=== PATIENT | female | born 1985 | race Caucasian/White ===

== ENCOUNTER 2018-05-08 21:41 | Emergency (ER) | payer OTHER, SELFPAY ==
--- NOTE | 2018-05-08 21:43 | DI.RAD.S_ITS ---
PROCEDURE: XR CHEST 1V INDICATIONS: Chest pain TECHNIQUE: One view of the chest was acquired. COMPARISON: None. FINDINGS: Surgical changes and devices: None. Lungs and pleura: Lungs are clear. No pleural effusions or pneumothorax. Mediastinum: Mediastinal contours appear normal. Heart size is normal. Bones and chest wall: No suspicious bony lesions. Overlying soft tissues appear unremarkable. IMPRESSION: No acute cardiopulmonary disease. Dictated by: Jaymie Stacy M.D. on 05/09/2018 at 8:30 Approved by: Jaymie Stacy M.D. on 05/09/2018 at 8:30
[2018-05-08 21:45] VITALS: BP 147/82; PULSE 104; RESP 18; TEMP 36.8; O2SAT 100; BMI 11.9
--- NOTE | 2018-05-08 21:51 | ED.CHESTPAIN ---
HPI - Chest Pain General Chief Complaint: Chest Pain Stated Complaint: Pain in chest and back Time Seen by Provider: 05/08/18 21:43 Source: patient Mode of arrival: ambulatory Limitations: no limitations History of Present Illness HPI narrative: Patient is a 32-year-old otherwise healthy female here for evaluation of right-sided chest pain and back pain. She states it has been going off and on for the past several months. Has been more frequent over the past couple weeks. She describes it as a sharp and achy pain. Does get a little worse when she takes a big deep breath not worse with palpation or movement. Has not tried anything for it. Also has had other respiratory symptoms. Had a son who was recently diagnosed with the flu. She stated that he was going to be several weeks before she get in to see her primary doctor show she came into the emergency department this evening. Review of Systems Constitutional Denies fever(s) Cardiovascular Reports chest pain, Denies edema and Denies dyspnea Respiratory Denies cough and Denies dyspnea Gastrointestinal Gastrointestinal: Denies abdominal pain, Denies nausea and Denies vomiting Integumentary/Breasts Denies rash Neurologic Denies behavioral changes Psychiatric Denies behavioral changes Hematologic/Lymphatic Denies easy bleeding and Denies easy bruising PFSH Medical History Healthy adult (Acute) Surgical History No pertinent past surgical history (Acute) Social History lives independently: Yes Social History lives independently: Yes Exam Initial Vital Signs Initial Vital Signs: Vital Signs Temperature 98.2 F 05/08/18 21:45 Pulse Rate 104 H 05/08/18 21:45 Respiratory Rate 18 05/08/18 21:45 Blood Pressure 147/82 H 05/08/18 21:45 Pulse Oximetry 100 05/08/18 21:45 Const General: cooperative, comfortable, well developed, well groomed and No acute distress Orientation: alert, awake and oriented x3 Resp Effort & Inspection: normal respiratory effort Auscultation: clear to auscultation bilaterally Cardio Rate: regular rate Rhythm: regular rhythm GI Inspection: non-distended Palpation: soft and No firm Skin Lesions: no lesions Rashes: no rashes Neuro General: alert, awake and oriented x3 Cognition: normal cognition Speech: speech normal Extrem General: normal to inspection and capillary refill normal Scores PERC Score Age greater than or equal to 50 years: No Heart rate greater than or equal to 100 bpm: No Room Air O2 Sat less than 95%: No Unilateral leg swelling: No Recent trauma or surgery: No Hemoptysis: No Prior PE or DVT: No Hormone Use: No Total PERC Score: 0 Course Orders Ordered: ED Orders 05/08/18 21:43 XR chest 1V Stat EKG-12 Lead Stat 05/08/18 22:22 Influenza A and B by PCR Rapid Stat Vital Signs - 8 hr 05/08/18 21:45 05/08/18 22:33 Temperature 98.2 F Pulse Rate 104 H 93 H Respiratory Rate 18 17 Blood Pressure 147/82 H Blood Pressure [Left Arm] 115/76 Pulse Oximetry 100 100 MDM - Chest Pain Lab Data Attestation: I reviewed the patient's lab results. Lab Results 05/08/18 Range/Units 22:22 Influenza A & B (PCR) Negative (Negative) Imaging Data Chest x-ray: Attestation: I personally reviewed and interpreted this imaging study as follows: My impression: No pneumothorax Normal size heart No focal consolidation ECG Data Attestation: I personally reviewed and interpreted this ECG as follows: Prior ECG tracings: not available for review Interpretation: Sinus rhythm Ventricular rate of 96 normal axis Normal intervals Normal QRS No ST T wave changes MDM Narrative Medical decision making narrative: Chest x-ray is unremarkable, flu is negative. Low risk for ACS and PE. No rashes. Patient will switch from ibuprofen to Naprosyn. She has a follow-up already scheduled with her primary doctor. Will hold on further workup for now. Discharge Plan Departure Patient Disposition: Home Clinical Impression: Atypical chest pain Instructions: DI for Atypical Chest Pain Activity Restrictions/Additional Instructions: Keep your scheduled medical appointment with your primary doctor. Return to the emergency department for any new or worsening symptoms.
--- NOTE | 2018-05-08 21:59 | PC.NURSE ---
She told me she has been sick since January with similar symptoms.
[2018-05-08 22:33] VITALS: BP 115/76; PULSE 93; RESP 17; O2SAT 100
[2018-05-08 22:46] LABS: Influenza A and B by PCR Rapid Negative (Negative)
[2018-05-08 23:15] VITALS: BP 98/77; PULSE 92; RESP 20; O2SAT 100
== END 2018-05-08 23:15 | disposition home or self-care (01) ==
PROVIDERS: Emergency Provider Emergency Medicine
DX: R07.89 Other chest pain (principal)
CPT/HCPCS: 71045; 87400; 93005; 93010; 99282; 99285

== ENCOUNTER 2018-12-06 17:45 | Observation (INO) | payer OTHER, SELFPAY ==
[2018-12-06 18:23] VITALS: BP 120/72; PULSE 49; RESP 18; TEMP 36.8; O2SAT 96; BMI 35.2
[2018-12-06 19:34] LABS: Add Manual Diff / Slide Review NO; Basophils Absolute Auto 0 /uL (0-100); Basophils Percent Auto 0.2 % (0-2); Eosinophils Absolute Auto 0 /uL (0-450); Eosinophils Percent Auto 0.4 % (2-4); Hematocrit 39.6 % (36-46); Hemoglobin 13.4 g/dL (12.0-16.0); Lymphocytes Absolute Auto 1400 /uL (1100-4500); Lymphocytes Percent Auto 12.7 % (25-40); Mean Corpuscular HGB Conc 33.8 % (30-36); Mean Corpuscular Hemoglobin 28.7 PG (26-34); Monocytes Absolute Auto 800 /uL (0-900); Monocytes Percent Auto 6.6 % (3-14); Neutrophils Absolute Auto 9200 /uL (1500-7000); Neutrophils Percent Auto 80.1 % (50-75); Platelet Count 263 X10^3/uL (150-400); Red Blood Cell Count 4.66 X10^6/uL (4.0-5.2); Red Cell Distribution Width 14.4 % (11.6-14.8); White Blood Cell Count 11.4 X10^3/uL (4.5-11.0)
[2018-12-06 19:47] LABS: Alanine Aminotransferase 113 IU/L (9-52); Albumin 4.4 g/dL (3.5-5.0); Albumin Globulin Ratio 1.4 (1.0-2.8); Alkaline Phosphatase 90 U/L (38-126); Aspartate Aminotransferase 213 IU/L (14-36); BUN Creatinine Ratio 18.8 (6-22); Bilirubin Total 0.5 mg/dL (0.2-1.3); Blood Urea Nitrogen 15 mg/dL (7-17); Calcium 9.5 mg/dL (8.4-10.2); Carbon Dioxide 30 mmol/L (22-32); Chloride 103 mmol/L (98-107); Estimated Glomerular Filt Rate > 60.0 mL/min (>60); Globulin 3.1 g/dL (1.7-4.1); Glucose 104 mg/dL (70-100); HEMOLYSIS < 15 (0-50); Potassium 4.2 mmol/L (3.4-5.1); Sodium 142 mmol/L (137-145); Total Protein 7.5 g/dL (6.3-8.2)
[2018-12-06 20:03] VITALS: BP 109/74; PULSE 85; RESP 16; O2SAT 100
[2018-12-06 20:14] VITALS: BP 103/70; PULSE 78; RESP 16; O2SAT 96
--- NOTE | 2018-12-06 20:15 | PC.NURSE ---
Warm blankets given, patient resting quietly in darkened room. Awaiting further orders, patient denies needs.
[2018-12-06 20:21] LABS: Bacteria Urine Few (2-10); RBC Urine 0-1/HPF (0-5/HPF); WBC Urine 0-1/HPF (0-5/HPF)
[2018-12-06 20:22] LABS: Culture Indicated Urine Cult Not Indicated; Squamous Epithelial Cell Urine 1-5 /HPF (0-5/HPF)
[2018-12-06 20:50] LABS: Lipase 1876 U/L (23-300)
--- NOTE | 2018-12-06 20:52 | ED.ABDPAIN ---
HPI - Abdominal Pain General Chief Complaint: Abdominal Pain Stated Complaint: dizzy,nausea all day,upper abd pain, sweaty Time Seen by Provider: 12/06/18 20:51 Source: patient Mode of arrival: Ambulatory Limitations: no limitations History of Present Illness HPI narrative: This is a 33-year-old female comes to the emergency department with complaint of abdominal pain. Patient states sort of epigastric, radiates on both sides in a band. She felt a little nauseated all day but no vomiting. She has felt a little under the weather and sweaty. She has had normal bowel movements, she has not had any dysuria urgency or frequency, no issues with vaginal bleeding. Patient states she has had gallbladder attacks in the past. She states she was told [place] [employer] Today was worse so she came in, she states she has not had symptoms for several months. Patient denies any other past medical issues, denies any prior surgeries. Related Data Home Medications Medication Instructions Recorded Confirmed No Known Home Medications 12/06/18 12/06/18 Allergies Allergy/AdvReac Type Severity Reaction Status Date / Time No Known Drug Allergies Allergy Verified 12/06/18 18:23 Review of Systems Review of Systems ROS Unobtainable: All systems reviewed & are unremarkable except as noted in HPI and below Constitutional Constitutional: Denies chills, Denies fever(s), Denies lethargy and Denies weakness Gastrointestinal Gastrointestinal: Reports abdominal pain, Denies melena, Denies hematochezia, Denies change in bowel habits, Denies diarrhea, Reports nausea and Denies vomiting Genitourinary Genitourinary: Denies abnormal vaginal bleeding, Denies hematuria, Denies urinary frequency, Denies dysuria, Denies flank pain, Denies urinary incontinence, Denies urinary hesitancy and Denies urinary urgency Musculoskeletal Musculoskeletal: Denies back pain Neurologic Neurologic: Denies weakness [facility] Medical History Healthy adult (Acute) Surgical History No pertinent past surgical history (Acute) Social History (Updated 05/08/18 @ 22:38 by Justice Hardin DO) lives independently: Yes Smoking Status: Never smoker Social History (Updated 12/06/18 @ 21:50 by Alecia Calles DO) household members: spouse and children lives independently: Yes Smoking Status: Never smoker alcohol intake: current substance use type: does not use Exam Narrative Exam Narrative: GENERAL: Alert and oriented x three, well-nourished, well-appearing female in mild distress. HEENT: Head normocephalic, atraumatic, EOMI, pupils reactive, face symmetric, moist mucous membranes NECK: Supple, full range of motion CARDIOVASCULAR: Regular rate and rhythm without murmurs, rubs or gallops. RESPIRATORY: Breath sounds equal bilaterally, no wheezes rales or rhonchi. ABDOMEN: Soft, nontender. Normoactive bowel sounds all 4 quadrants. No guarding or rebound, rigidity, no mass : No CVA tenderness EXTREMITIES: Normal range of motion, no clubbing or edema. Neurovascularly intact NEUROLOGICAL: Cranial nerves II through XII grossly intact. Moving all extremities SKIN: Warm, dry, no petechiae, no rashes or lesions. Initial Vital Signs Initial Vital Signs: Vital Signs Temperature 98.2 F 12/06/18 18:23 Pulse Rate 49 L 12/06/18 18:23 Respiratory Rate 18 12/06/18 18:23 Blood Pressure 120/72 12/06/18 18:23 Pulse Oximetry 96 12/06/18 18:23 Course Orders Ordered: ED Orders 12/06/18 20:54 US abdomen complete Stat Lactated Ringer's (Lactated Ringers) 1,000 mls @ 150 mls/hr IV CONT KAREN Last Admin: 12/07/18 00:34 Dose: 150 mls/hr Documented by: SUMMER Ketorolac Tromethamine (Toradol) 30 mg IV Q6H PRN PRN Reason: pain Morphine Sulfate (Morphine) 2 mg IV Q4HR PRN PRN Reason: Pain, Mild (1-3) Ondansetron HCl (Zofran) 4 mg IV Q4HR PRN PRN Reason: Nausea And Vomiting Discontinued Medications Sodium Chloride (Normal Saline 0.9%) 1,000 mls @ 1,000 mls/hr IV BOLUS ONE Stop: 12/06/18 22:06 Last Infusion: 12/07/18 00:00 Dose: 0 mls/hr Documented by: Admin: 12/06/18 21:19 Dose: 1,000 mls/hr Documented by: LREED Vital Signs Vital signs: Vital Signs - 8 hr 12/06/18 22:00 Temperature 98.4 F Pulse Rate 68 Respiratory Rate 14 Blood Pressure [Left Arm] 117/67 Pulse Oximetry 99 MDM - Abdominal Pain Lab Data Attestation: I reviewed the patient's lab results. Result diagrams: 12/06/18 19:03 12/06/18 19:03 Labs: Lab Results 12/06/18 12/06/18 12/06/18 Range/Units 19:03 19:03 19:25 WBC 11.4 H (4.5-11.0) X10^3/uL RBC 4.66 (4.0-5.2) X10^6/uL Hgb 13.4 (12.0-16.0) g/dL Hct 39.6 (36-46) % MCV 85.0 (80-100) fL MCH 28.7 (26-34) PG MCHC 33.8 (30-36) % RDW 14.4 (11.6-14.8) % Plt Count 263 (150-400) X10^3/uL Neut % (Auto) 80.1 H (50-75) % Lymph % (Auto) 12.7 L (25-40) % [place] % (Auto) 6.6 (3-14) % Eos % (Auto) 0.4 L (2-4) % Baso % (Auto) 0.2 (0-2) % Neut # (Auto) 9200 H (4635-2519) /uL Lymph # (Auto) 1400 (6923-9375) /uL [place] # (Auto) 800 (0-900) /uL Eos # (Auto) 0 (0-450) /uL Baso # (Auto) 0 (0-100) /uL Sodium 142 (137-145) mmol/L Potassium 4.2 (3.4-5.1) mmol/L Chloride 103 (98-107) mmol/L Carbon Dioxide 30 (22-32) mmol/L BUN 15 (7-17) mg/dL Creatinine 0.80 (0.52-1.04) mg/dL Estimated GFR > 60.0 (>60) mL/min BUN/Creatinine Ratio 18.8 (6-22) Glucose 104 H (70-100) mg/dL Calcium 9.5 (8.4-10.2) mg/dL Total Bilirubin 0.5 (0.2-1.3) mg/dL AST 213 H (14-36) IU/L ALT 113 H (9-52) IU/L Alkaline Phosphatase 90 (38-126) U/L Total Protein 7.5 (6.3-8.2) g/dL Albumin 4.4 (3.5-5.0) g/dL Globulin 3.1 (1.7-4.1) g/dL Albumin/Globulin Ratio 1.4 (1.0-2.8) Lipase 1876 H (23-300) U/L Urine RBC 0-1/hpf (0-5/HPF) Urine WBC 0-1/hpf (0-5/HPF) Ur Squamous Epith Cells 1-5 /hpf (0-5/HPF) Urine Bacteria Few (2-10) H (None) Ur Culture Indicated? Cult not indicated Point of care testing: Point of Care Testing Test Results Negative Urine Dip Bedside Urine Glucose Negative Bedside Urine Bilirubin - Negative Bedside Urine Ketone - Negative Urine Specific [place] 1.020 Bedside Urine Occult Blood - Negative Bedside Urine pH 6.0 Bedside Urine Protein +/- 15 Bedside Urine Urobilinogen +/- 1mg Bedside Urine Nitrite - Negative Bedside Urine Leukocytes - Negative Esterase Imaging Data US - abdomen: Radiologist's impression: prelim + gallstones, one stone stuck in the neck, no thickening of wall or pericholecystic fluid, CBD normal caliber. MDM Narrative Medical decision making narrative: Discussed with patient she has had pain although she states her pain is controlled at this time, she does have an elevated lipase suggesting pancreatitis, ultrasound shows gallstones but no signs of cholecystitis. Discussed with General surgery, Dr. Narayan. Case was discussed, plan for NPO overnight, no antibiotics, LR @ 150/hr, pain meds prn. Patient was quite anxious about any potential surgery, she states that her mother was supposed to have a laparoscopic surgery for her gallbladder end up being an open procedure and she had some complications with medication allergies. She ultimately did well but patient states that this makes her anxious. Discussed that she will be seen by General surgery in the morning, case will be discussed and a final plan will be made. All questions answered. Discharge Plan Departure Patient Disposition: Admitted as Observation Clinical Impression: Acute pancreatitis, Cholelithiasis Discharge Date/Time: 12/07/18 00:02 Admit Date/Time: 12/06/18 22:34 Admit Provider: Roberto Carlos Narayan
--- NOTE | 2018-12-06 20:54 | DI.US.S_ITS ---
PROCEDURE: US ABDOMEN COMPLETE INDICATIONS: PAIN; PANCREATITIS TECHNIQUE: Real-time scanning was performed of the abdominal and retroperitoneal organs, with image documentation. COMPARISON: None. FINDINGS: Liver: Liver is normal in size and mildly increased in echogenicity. Gallbladder: Numerous echogenic shadowing mobile gallstones are demonstrated as well as an impacted stone in the gallbladder neck measuring up to 0.9 cm. No gallbladder wall thickening, pericholecystic fluid, or reported sonographic Woods's sign. Biliary ducts: Intrahepatic bile ducts are non-dilated. Extrahepatic bile duct caliber measures up to 5 mm. Normal is 6-7 mm or less in diameter, or 10 mm or less post-cholecystectomy. Pancreas: Not well-seen due to bowel gas. Spleen: Spleen is normal in size and homogeneous in echotexture. Kidneys: Right kidney measures 9.9 cm long; left kidney measures 12.5 cm long. No hydronephrosis. Aorta: Visualized aorta is normal in caliber at less than 3 cm. Iliacs: Proximal common iliac arteries are normal in caliber at less than 2.5 cm. IVC: Intrahepatic inferior vena cava is patent. Miscellaneous: No free abdominal fluid. IMPRESSION: 1. Cholelithiasis including an impacted stone in the gallbladder neck without definite evidence of cholecystitis. 2. No biliary ductal dilatation. 3. Pancreas not well evaluated on the current study due to bowel gas. Concordant with preliminary interpretation. Dictated by: Td Shearer M.D. on 12/07/2018 at 8:29 Approved by: Td Shearer M.D. on 12/07/2018 at 8:32
[2018-12-06 21:00] VITALS: BP 125/68; PULSE 70; RESP 14; O2SAT 98
[2018-12-06] MEDS: SODIUM CHLORIDE 0.9% 1,000 ML 1000 ML IV (21:19)
[2018-12-06 22:00] VITALS: BP 117/67; PULSE 68; RESP 14; TEMP 36.9; O2SAT 99
[2018-12-06 23:09] VITALS: BP 122/67; PULSE 64; RESP 14; O2SAT 98
[2018-12-07] VITALS (16 sets, daily range): BP systolic 106–134; BP diastolic 52–84; PULSE 65–106; RESP 10–18; TEMP 36–37.2; O2SAT 92–100; BMI 35.2
--- NOTE | 2018-12-07 | PATH_ITS ---
[facility] Accession Number: [id number] . 01 Material submitted: . gallbladder - GALLBLADDER . 01 Clinical history: . DIZZY, NAUSEA ALL DAY, UPPER ABD PAIN, SWEATY . 02 Diagnosis: Gallbladder, Cholecystectomy: Cholecystitis with mild chronic cholecystitis. No evidence of neoplasm. MRV 12/10/2018 1146 Local . 02 Electronically signed: . Patrick Maya MD, PhD, Pathologist NPI- [id number] . 01 Gross description: . Received in formalin, labeled gallbladder, is an intact gallbladder (length-9.3 cm, diameter-2.8 cm) with ramírez-pink smooth shiny serosa and a patent cystic duct. No lymph nodes are identified. The lumen contains green viscous bile and multiple red-brown smooth hard calculi (5.5 x 4.0 x 1.2 cm in aggregate). The mucosa is green, smooth and flat. The wall is up to 0.1 cm thick. No nodules, masses or lesions are identified. Section code: (A1) cystic duct resection margin and two serial sections from the body; (A2) two longitudinal sections from the fundus. ([id number]) /MRV 12/09/2018 1215 Local . 02 Pathologist provided ICD-10: K80.60 . 02 CPT . 441463 Performed at: 01 [facility] [address] [id number] MD Td Rodriguez MD Phone: [phone] Performed at: 02 [facility] [address] [place], [place] [id number] MD Carey Nathan MD Phone: [phone]
--- NOTE | 2018-12-07 | DI.RAD.S_ITS ---
PROCEDURE: XR CHOLANGIOGRAM OPERATIVE INDICATIONS: lap darrin COMPARISON: None. FINDINGS: Biliary ducts: The surgeon injected contrast into the biliary ducts after cannulation of the cystic duct stump. Visualized intra- and extrahepatic bile ducts are normal in caliber, without strictures. There is a probable filling defect within the distal common bile duct. No evidence for iatrogenic ductal injury. Duodenum: Contrast flows promptly through the sphincter of Oddi into the duodenum, which appears normal in caliber. IMPRESSION: Findings suggestive of choledocholithiasis. Dictated by: Devendra Goldberg M.D. on 12/07/2018 at 18:15 Approved by: Devendra Goldberg M.D. on 12/07/2018 at 18:16
[2018-12-07] MEDS: LACTATED RINGERS 1,000 ML 150 ML IV ×3 (00:34→13:59)
--- NOTE | 2018-12-07 03:32 | PC.NURSE ---
Patient arrived to the acute care floor via wheelchair at 0024. Patient is alert and oriented and completely independent in the room. Denies any abdominal pain but states she has mild nausea. Patient refuses any anti-emetic or pain medication at the time of assessment.
--- NOTE | 2018-12-07 07:48 | PC.NURSE ---
Addendum entered by Raya Booth R.N. 12/07/18 15:22: Stable course throughout the shift. Did not require any meds for pain or nausea. Was taken off floor by CUP[employer] WORKER approx [id number]. Original Note: Shift summary: Awake and alert, oriented X3. Denies N/V. Denies abd pain or discomfort. NPO. She is chewing gum and declines other oral care options at this time. IVF per orders, site in L FA WNL. Able to make needs known. Call light and belongings within reach.
--- NOTE | 2018-12-07 10:05 | PM.HP.1 ---
History of Present Illness History of Present Illness Date Patient Seen: 12/07/18 Time Patient Seen: 10:49 Chief complaint: dizzy,nausea all day,upper abd pain, sweaty Narrative: The patient is a woman who has been having intermittent pain in her epigastrium and right upper quadrant since January. Her last episode was in April. This episode began yesterday earlier in the day. Progressed. It was accompanied by nausea. Right now she is feeling much better. She has had no prior abdominal operations. She has been NPO all night. Patient History Medical History (Updated 12/07/18 @ 11:05 by Roberto Carlos Narayan MD) Healthy adult (Acute) Surgical History No pertinent past surgical history (Acute) Social History (Updated 12/06/18 @ 21:50 by Alecia Calles DO) household members: spouse and children lives independently: Yes Smoking Status: Never smoker alcohol intake: current substance use type: does not use Family & Social History Social History: household members spouse,children Prior Living Arrangements House lives independently Yes Immediate family members have had gallstones Safety & Behavioral: Feels Safe in Current Yes Environment Been Physically Hurt or No Threatened By a Person Suicidal Ideation Description None Suicide Plan Description No Plan Tobacco & Substance use: Smoking Status Never smoker alcohol intake current alcohol intake frequency holiday/special occasion Substance Use Type does not use Meds Home Medications and Allergies Home Medications Medication Instructions Recorded Confirmed Type No Known Home Medications 12/06/18 12/06/18 History Allergies Allergy/AdvReac Type Severity Reaction Status Date / Time No Known Drug Allergies Allergy Verified 12/06/18 18:23 Review of Systems Review of Systems Narrative: Patient denies any visual difficulties or double vision. She has been having more frequent headaches slightly. She also thinks her hearing is little worse than it has been. No tooth aches or trouble swallowing. No asthma or cough or sputum production at this time. She did have a cough a couple weeks ago but that resolved after a day or 2. She describes having episodes of rapid heart rate in dizziness and flushing of her face. This seems to occur randomly. She has had no evaluation for it though she has discussed it with her physicians. Patient also states that she had a heart murmur as a child but no one has mentioned that since. No heart attacks. No black or bloody bowel movements. No history kidney stones or blood in her urine. No seizures. She was quite pale and presyncopal when she came into the emergency room with the pain. She did actually pass out however. Patient has no known chronic numbness or tingling anywhere. No anxiety or depression. Exam Vital Signs (past 8 hours): - 12/07/18 08:25 Temperature 98.2 F Pulse Rate 95 H Respiratory Rate 16 Blood Pressure 119/74 Pulse Oximetry 99 Oxygen Delivery Method Room Air Oxygen Flow Rate 0 Narrative Exam Narrative: Pleasant woman in no apparent distress. Her eyes are nonicteric. Pupils equal round reactive to light. Ears without lesion sub nasal septum midline. Oral mucosa pink no open lesions. Neck is supple. No nodes in the neck supraclavicular areas. Trachea is midline mobile. Thyroid is not enlarged. There is no tenderness in the thyroid or masses. Patient lungs are clear to auscultation without rales or rhonchi in equal percussion. Heart regular rate and rhythm without murmur gallop. No bruit in the neck. Her abdomen is protuberant soft. No tenderness or guarding at this time. No hernias appreciated. She is alert and oriented x3. Speech rate and content are appropriate. Affect is appropriate. Skin has a 2+ texture and turgor. No obvious open lesions appreciated. Objective Imaging US - abdomen: Radiologist's impression: Gallstones. No ductal dilatation. No wall thickening. Stone impacted in the neck of the gallbladder. Labs Result Diagrams: 12/07/18 10:05 12/07/18 10:05 Labs: Laboratory Results - last 24 hr 12/06/18 12/06/18 12/06/18 19:03 19:03 19:25 WBC 11.4 H RBC 4.66 Hgb 13.4 Hct 39.6 MCV 85.0 MCH 28.7 MCHC 33.8 RDW 14.4 Plt Count 263 Neut % (Auto) 80.1 H Lymph % (Auto) 12.7 L [place] % (Auto) 6.6 Eos % (Auto) 0.4 L Baso % (Auto) 0.2 Neut # (Auto) 9200 H Lymph # (Auto) 1400 [place] # (Auto) 800 Eos # (Auto) 0 Baso # (Auto) 0 Sodium 142 Potassium 4.2 Chloride 103 Carbon Dioxide 30 BUN 15 Creatinine 0.80 Estimated GFR > 60.0 BUN/Creatinine Ratio 18.8 Glucose 104 H Calcium 9.5 Total Bilirubin 0.5 AST 213 H ALT 113 H Alkaline Phosphatase 90 Total Protein 7.5 Albumin 4.4 Globulin 3.1 Albumin/Globulin Ratio 1.4 Lipase 1876 H Urine RBC 0-1/hpf Urine WBC 0-1/hpf Ur Squamous Epith Cells 1-5 /hpf Urine Bacteria Few (2-10) H Ur Culture Indicated? Cult not indicated Assessment & Plan Assessment and plan (1) Acute pancreatitis: Problem details: Most likely biliary in nature. She has probably passed a stone. Awaiting labs this morning to confirm that her bilirubin has remained normal. Current visit: Yes Status: Acute (2) Cholelithiasis: Problem details: Recommend laparoscopic cholecystectomy with intraoperative cholangiogram. I have discussed the reasons for it. The rationale behind it. I also discussed pancreatitis with her. Risks of bleeding, infection, hernia, bile leakage which might require a ERCP, injury to internal organs in ducts which would require major operation to repair, possibility for need for postop ERCP if common duct stones are found were all discussed. She appears to understand and wishes to proceed. Current visit: Yes Status: Acute Quality VTE Deep Vein Thrombosis/Pulmonary Embolism Present on Admission: No
[2018-12-07 10:16] LABS: Add Manual Diff / Slide Review NO; Basophils Absolute Auto 0 /uL (0-100); Basophils Percent Auto 0.3 % (0-2); Eosinophils Absolute Auto 0 /uL (0-450); Eosinophils Percent Auto 0.8 % (2-4); Hematocrit 38.1 % (36-46); Hemoglobin 12.9 g/dL (12.0-16.0); Lymphocytes Absolute Auto 1800 /uL (1100-4500); Mean Corpuscular HGB Conc 33.8 % (30-36); Mean Corpuscular Volume 85.8 fL (80-100); Monocytes Absolute Auto 300 /uL (0-900); Monocytes Percent Auto 5.1 % (3-14); Neutrophils Absolute Auto 3900 /uL (1500-7000); Neutrophils Percent Auto 63.8 % (50-75); Platelet Count 223 X10^3/uL (150-400); Red Blood Cell Count 4.44 X10^6/uL (4.0-5.2); Red Cell Distribution Width 14.4 % (11.6-14.8); White Blood Cell Count 6.2 X10^3/uL (4.5-11.0)
[2018-12-07 10:26] LABS: Alanine Aminotransferase 331 IU/L (9-52); Albumin 3.9 g/dL (3.5-5.0); Albumin Globulin Ratio 1.4 (1.0-2.8); Alkaline Phosphatase 97 U/L (38-126); Aspartate Aminotransferase 291 IU/L (14-36); BUN Creatinine Ratio 14.3 (6-22); Bilirubin Total 0.5 mg/dL (0.2-1.3); Blood Urea Nitrogen 10 mg/dL (7-17); Carbon Dioxide 29 mmol/L (22-32); Chloride 106 mmol/L (98-107); Estimated Glomerular Filt Rate > 60.0 mL/min (>60); Globulin 2.8 g/dL (1.7-4.1); Glucose 101 mg/dL (70-100); HEMOLYSIS < 15 (0-50); Lipase 73 U/L (23-300); Potassium 4.2 mmol/L (3.4-5.1); Sodium 143 mmol/L (137-145); Total Protein 6.7 g/dL (6.3-8.2)
--- NOTE | 2018-12-07 11:34 | CM.DANOTE ---
DCP: Case received, EMR reviewed and met with patient. Introduced self and role. Was able to converse with patient in her room, for she was waiting for surgeon, regarding baseline health information. DCP assessment/template, completed with information currently available. Patient is a 33 year old female who admitted yesterday evening to the care of the hospitalist/surgical team. PCP: [facility], radha James. Payer: confirmed: Leonor Rubio. Patient came to the hospital via family vehicle due to nausea, as well as abdominal pain and diaphoresis. Met with patient in her room. She was laying in bed, eager to see surgeon, for surgery planned, and she has been NPO. 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 Patient indicated that she sees different providers at [facility]. P: Patient will be meeting up with surgeon today, and could have surgery. She should be able to go home when she is medically stable, and will see how she does after surgery. Fe Longoria RN/Web Services Architect
--- NOTE | 2018-12-07 13:15 | PM.PREOP ---
Pre-operative Note Interval Note History & Physical reviewed/Exam performed by Physician: Yes Changes to H&P: Yes H&P completed within 30 days and has changed as indicated here:: LFTs have gone up but her bilirubin is normal, her alk-phos is normal, and her lipase has gone from 1800to 76.
[2018-12-07] MEDS: LACTATED RINGERS 1,000 ML 42 ML IV ×2 (14:45→15:41)
[2018-12-07] MEDS: CEFAZOLIN 2 GM/100 ML FROZ.PIGGY IV (15:00)
--- NOTE | 2018-12-07 15:20 | SUR.OPER ---
Supine on padded OR bed, head on pillow, safety belt at thigh, left arm padded and tucked at side. Right arm secured on padded arm oard <90 degrees abduction. Legs uncrossed. Padded footboard in place. Tape over blanket to secure lower legs.
[2018-12-07] MEDS: IOPAMIDOL 15 ML VIAL INJ (15:29)
--- NOTE | 2018-12-07 17:00 | PM.OP.1 ---
Operative Date/Time/Diagnoses Date of procedure: 12/07/18 Time of procedure: 17:00 Pre-op diagnosis: Cholelithiasis pancreatitis Post-op diagnosis: same (Cholelithiasis chronic cholecystitis, choledocholithiasis with obstructed biliary tree) Procedure & Clinicians Procedure: Lap choly with intraoperative cholangiogram Same procedure as scheduled: Yes Indications: Pancreatitis in the face of gallstones. Intermittent pain for months. Surgeon: Roberto Carlos Narayan Click Yes if Unassisted: Yes Anesthesia Type: General Operative Notes Findings: Patient had inflamed gallbladder. She appears to have a small stone in her distal common duct causing complete obstruction based on her cholangiogram Closure Type: primary Specimen(s): other (Gallbladder) Applied: drain(s) (7 mm Ben-Woody drain placed in the gallbladder fossa) Estimated Blood Loss (mL): 15 Blood products transfused: none Procedure in detail: The patient was placed supine on the operating room table and underwent general endotracheal anesthesia. The patient was prepped and draped in the usual fashion. Local anesthetic was infiltrated near the umbilicus and curvilinear incision made and carried down through fascia into the peritoneal cavity. Stay sutures of 0 Vicryl were placed in the fascia. A 12 mm port was placed. The abdomen was insufflated. The patient was repositioned. Local anesthetic was infiltrated in 3 areas under the right costal margin and 3 incisions made followed by placing 3 5 mm ports under direct laparoscopic camera vision internally. The gallbladder was grasped and elevated. Dissection was begun near its end. There was a fair amount of edema and inflammation at the end of the gallbladder. I out what appeared to be the cystic duct from surrounding structures. Clip was placed with its junction at the gallbladder. A small skyler was intentionally made in the cystic duct and it was cannulated with the cholangiocatheter. Cholangiogram was performed that showed no flow into the duodenum. A normal caliber ductal system. There appeared to be a small stone in the distal common bile duct obstructing flow into the duodenum. The cholangiocatheter was removed and 3 additional clips were placed on the duct. The duct was divided leaving those 3 clips in the patient. The artery was identified and from surrounding structures in handled in a very similar fashion.. The gallbladder was then dissected from its bed in the liver using cautery. Hemostasis was achieved as the operation progressed. Gallbladder was detached, placed in a bag and removed through the umbilical port. the right a collagen was irrigated and suctioned free of fluid. A 7 mm Ben-Woody drain was placed in the gallbladder fossa in anticipation of possibly needing an ERCP and drainage. The port sites were all irrigated. The stay sutures at the umbilicus were elevated. A 2 0 PDS suture was placed between them. The Vicryl and PDS sutures were then tied. The skin in all areas was closed with interrupted 4 0 Vicryl subcuticular stitches. Steri-Strips and Mastisol were applied. Band-Aids were placed and the patient was awakened, extubated and taken to the recovery area in good condition. Complications: none Post-operative Condition: stable Disposition: PACU
[2018-12-07] MEDS: HYDROMORPHONE 2 MG INJ 0.5 MG IV ×2 (17:17→17:27)
--- NOTE | 2018-12-07 17:26 | SUR.PHASEI ---
arousing, moving head, facial grimace, states 'my tummy hurts; will medicate. C/o need to void, unable to answer if she prefers a bedpan vs waiting (too sleepy)
--- NOTE | 2018-12-07 17:39 | SUR.PHASEI ---
sleeping, resp even and regular, sat 92% RA, turned on o2 at 2lNP.
--- NOTE | 2018-12-07 17:51 | SUR.PHASEI ---
sleeping well w/0 facial grimace after rx x2 and warm blankets. Resp unlabored, skin warm and dry. stable. will transfer to soon.
--- NOTE | 2018-12-07 17:55 | SUR.PHASEI ---
notified floor that she would be coming up soon. Comfortable and sleeping well. VSS.
[2018-12-07] MEDS: KETOROLAC 60 MG/2 ML VIAL 30 MG IV (18:09)
--- NOTE | 2018-12-07 18:23 | SUR.PHASEI ---
1801 to room 229, bed down and locked, call light within reach, began shivering when she was awoken to transfer and check dressings. Very sleepy, occasional whimper and grimace. staff will apply SCDs after helping patient to use the bedpan. family in the room.
[2018-12-07] MEDS: DEXTROSE 5%-0.45% NS 1,000 ML 125 ML IV (18:25)
[2018-12-07] MEDS: MORPHINE 4 MG/ML INJ IV ×2 (20:00→20:51)
[2018-12-07] MEDS: GABAPENTIN 300 MG CAPSULE PO (20:52)
[2018-12-07] MEDS: ACETAMINOPHEN 325 MG TABLET 650 MG PO (20:52)
[2018-12-08] VITALS (7 sets, daily range): BP systolic 107–121; BP diastolic 55–79; PULSE 60–75; RESP 16–19; TEMP 36.1–37.4; O2SAT 94–100
[2018-12-08] MEDS: DEXTROSE 5%-0.45% NS 1,000 ML 125 ML IV ×3 (02:20→20:02)
[2018-12-08 05:26] LABS: Lipase 32 U/L (23-300)
[2018-12-08 05:27] LABS: Alanine Aminotransferase 336 IU/L (9-52); Albumin 3.6 g/dL (3.5-5.0); Albumin Globulin Ratio 1.5 (1.0-2.8); Alkaline Phosphatase 97 U/L (38-126); Aspartate Aminotransferase 255 IU/L (14-36); Bilirubin Total 0.6 mg/dL (0.2-1.3); Bilirubin Unconjugated 0.4 mg/dL (0.0-1.1); Globulin 2.4 g/dL (1.7-4.1); HEMOLYSIS < 15 (0-50)
--- NOTE | 2018-12-08 07:55 | DI.MRI.S_ITS ---
PROCEDURE: MR ABDOMEN WO CON INDICATIONS: r/o common duct stone TECHNIQUE: Coronal HASTE through the abdomen, axial 2-D FLASH in- and [id number], and breath-hold T2 FSE with fat saturation through the biliary system and pancreas. Oblique coronal and axial thin-slice HASTE, radial thick-slab HASTE centered on the extrahepatic bile ducts. Intravenous secretin: Not requested. COMPARISON: [facility], CR, XR CHOLANGIOGRAM OPERATIVE, 12/07/2018, 16:08. FINDINGS: Image quality: Excellent. Pancreas and biliary system: Intra- and extra-hepatic biliary ducts are non dilated. There is a probable tiny stone in the distal common duct Pancreas is normal in morphology, without adjacent soft tissue edema. Pancreatic duct is normal in caliber, without developmental anomalies. Gallbladder is surgically absent. Other solid organs: Liver is normal in size. Spleen is normal in size. No adrenal nodules. Both kidneys are normal in size, without hydronephrosis. Nodes and vessels: No retroperitoneal or mesenteric adenopathy by size criteria. Aorta and inferior vena cava are normal in size. Bowel and peritoneum: Unenhanced bowel loops are normal in caliber. No free fluid. Lung bases: No basal pleural effusions. Heart size is normal. Bones and soft tissues: No ventral hernias. Bone marrow is of normal overall signal. IMPRESSION: Probable tiny distal common duct stone. No dilated ducts. Dictated by: Bryson Azevedo M.D. on 12/08/2018 at 16:50 Approved by: Bryson Azevedo M.D. on 12/08/2018 at 16:59
[2018-12-08] MEDS: GABAPENTIN 300 MG CAPSULE PO ×2 (09:01→21:35)
--- NOTE | 2018-12-08 10:04 | CM.DPC ---
Addendum entered by Jennifer Mooney LPN 12/08/18 10:16: MRCP is now planned. Original Note: DCP: continued: Case received, EMR reviewed and discucced in Team Rounds. RN Coordinator Megan states that a transfer to was attempted yesterday but was unable to take pt as payer is [facility]. Further tests will be completed now and then if transfer still indicated other facilities will be considered. OP report of late yesterday is last documentation from Dr. Narayan/op report/ although do know that he has been on the acute care floor today so will look for this. Surgery last evening: Lap darrin IOC: noting stone in distal common duct causing complete obstruction. DCP team will follow as POC unfolds.
[2018-12-08] MEDS: MORPHINE 4 MG/ML INJ IV ×2 (11:56→22:05)
--- NOTE | 2018-12-08 15:13 | PM.PNPO.1 ---
Subjective Subjective Date Patient Seen: 12/08/18 Time Patient Seen: 09:29 Interval history: Patient seen earlier today. Feeling okay. Minimal plain. No vomiting. Exam Vital Signs (past 8 hours): - 12/08/18 08:20 12/08/18 08:24 12/08/18 12:56 Temperature 97.0 F L 99.4 F Pulse Rate 60 74 Respiratory Rate 17 16 Blood Pressure 121/69 115/76 Pulse Oximetry 100 97 Oxygen Delivery Method Room Air Oxygen Flow Rate 0 Narrative Exam Narrative: Breathing could be better. Abdomen dressings are intact dry. Drainage bloody fluid. Objective Labs Result Diagrams: 12/07/18 10:05 12/07/18 10:05 Labs: Laboratory Results - last 24 hr 12/08/18 12/08/18 04:45 04:45 Total Bilirubin 0.6 Conjugated Bilirubin 0.0 Unconjugated Bilirubin 0.4 AST 255 H ALT 336 H Alkaline Phosphatase 97 Total Protein 6.0 L Albumin 3.6 Globulin 2.4 Albumin/Globulin Ratio 1.5 Lipase 32 D Assessment & Plan Post-op Postoperative Procedures: Procedures Operation Date: 12/07/18 12:30 Actual Procedures Side Surgeon p Laparoscopic Cholecystectomy with Intraoperative Cholangiogram Roberto Carlos Narayan MD Postoperative day: 1 Postoperative status narrative: Doing well. Odd that her bilirubin has not gone up nor her alk-phos despite the findings on cholangiogram. It is possible she passed her stone. Postoperative plan narrative: I had intended to transfer her elsewhere for an ERCP. Actually attempted to do that [facility] but they declined the transfer at this time. Therefore I will obtain an MRCP and if there is no evidence of stone pool or drain and discharge her. However if there is evidence of a stone we will transfer her for an ERCP sphincterotomy and removal of the stone. Patient and both aware of this plan. Quality VTE Deep Vein Thrombosis/Pulmonary Embolism Present on Admission: No
--- NOTE | 2018-12-08 16:45 | PC.NURSE ---
Pt off unit during hand-off report. Pt returned to unit at approx 1345. IV flushed and reconnected to IVF per orders. Denies nausea. Drsgs remain c/d/i. CHRISTIANE with small amt of sero-sang drainage. Pt reports erythema to lower right side of face post face wash and reports it may be r/t laundry soap. Ice pack applied to area. Spouse at bedside. Advised pt to call for SBA for oob mobility once spouse leaves. Student nurse participating with care and medication administrations. All care/administrations performed by student done under the supervision of this RN.
[2018-12-09] VITALS: BP 108/50; PULSE 78; RESP 15; TEMP 37.2; O2SAT 94
[2018-12-09] MEDS: DEXTROSE 5%-0.45% NS 1,000 ML 125 ML IV ×2 (03:56→11:07)
[2018-12-09 05:37] VITALS: BP 111/60; PULSE 82; RESP 16; TEMP 37; O2SAT 100
[2018-12-09 07:54] VITALS: BP 116/74; PULSE 74; RESP 16; TEMP 36.8; O2SAT 98
--- NOTE | 2018-12-09 09:09 | PC.NURSE ---
Addendum entered by Megan Dixon R.N. 12/09/18 15:26: Patient taken via ambulance to [facility], report called to Radha on 2nf floor, patient had all belongings. Original Note: Patient alert, oriented denies need for pain med at this time, denies nausea, remains NPO. Bt hypoactive but patient reports some flatus this morning.
[2018-12-09] MEDS: GABAPENTIN 300 MG CAPSULE PO (09:13)
[2018-12-09 12:00] VITALS: BP 129/68; PULSE 89; RESP 16; TEMP 36.9; O2SAT 99
--- NOTE | 2018-12-09 13:59 | CM.DPC ---
DCP: continued: spoke with pt's about a half hour ago. He was aware that the care team was working on a transfer to higher level of care and was hopeful of an updated. Have now conferred with RN Joel Najera and RN Megan Erwin bed has been confirmed at [facility]: [place] and Dr. Narayan has just arrived and is going over POC with pt and her family (he young children are also present in the room with dad.) Pt expressing relief and transfer details are in process.
--- NOTE | 2018-12-09 14:05 | PM.DS.1 ---
History of Present Illness History of Present Illness Chief complaint: dizzy,nausea all day,upper abd pain, sweaty Narrative: The patient is a woman who has been having intermittent pain in her epigastrium and right upper quadrant since January. Her last episode was in April. This episode began yesterday earlier in the day. Progressed. It was accompanied by nausea. Right now she is feeling much better. She has had no prior abdominal operations. She has been NPO all night. Discharge Providers Provider Date of admission: 12/06/18 22:34 Discharge Date: 12/09/18 Consults: 12/07/18 18:26 Consult to Discharge Planning Routine Comment: Discharge provider: Roberto Carlos Narayan MD Summary Hospital Course Discharge Diagnosis: Cholelithiasis with cholecystitis. Chronic. Choledocholithiasis acute (biliary) pancreatitis acute Hospital Course: On admission the patient's lipase was markedly elevated(>1800). Her pain resolved quickly as did her lipase elevation. She was taken to the operating room sure where she underwent a laparoscopic cholecystectomy and intraoperative cholangiogram. The cholangiogram failed of show flow into the duodenum. There appeared to be a meniscus sign at the bottom of the duct consistent with an obstructing stone. The ductal system was not dilated. A drain was left in anticipation of the patient requiring an ERCP. Postoperatively the patient's LFTs remained elevated but her bilirubin was normal as was her alkaline phosphatase. This was somewhat unusual. Given her clinical appearance and the lack of elevation of her bilirubin she was sent for an MRI of the abdomen. This continued to show a stone in her distal duct though now it did not appear to be obstructing. There was no dilatation of the ductal system. I attempted to transfer the patient in multiple hospitals but only 1 had beds available and that was [facility] in [place]. Dr. Isidoro gordon and the stranner there were kind enough to accept the patient in transfer. She is being transferred by BLS ambulance. Once the ERCP is completed and the duct cleared of cyst material, the drain can probably be removed. This simply requires cutting the stitches holding it to her skin and pulling it out. It is a rather long tube. Status at Discharge Cognitive/behavioral status at discharge: oriented Functional status at discharge: independent ambulation Overall status at discharge: patient is progressing back to baseline Exam Vital Signs (past 8 hours): - 12/09/18 07:54 12/09/18 12:00 Temperature 98.3 F 98.5 F Pulse Rate 74 89 Respiratory Rate 16 16 Blood Pressure 116/74 129/68 Pulse Oximetry 98 99 Oxygen Delivery Method Room Air Oxygen Flow Rate 0 Narrative Exam Narrative: Lungs are clear. Abdomen is soft. Dressings intact. No unusual tenderness. Objective Labs Result Diagrams: 12/07/18 10:05 12/07/18 10:05 Discharge Plan Discharge Plan Discharge Problem: Acute pancreatitis, Cholelithiasis Patient Disposition: [facility] Transfer to: [facility] Under care of provider: Dr. Cohen Discharge comment: Patient doing well postop. Drain can be removed after ERCP is complete if there is no bile leakage into the drain. It was only placed in anticipation of an ERCP should injection in the duct causes leakage from the cystic duct stump. Discharge Med Rec/Prescriptions Prescriptions: No Action No Known Home Medications RF: 0 Discharge Health Status Precautions: [place] Provider Discharge Instructions Diet: Diet as Tolerated Diet comment: The patient has been NPO in anticipation of needing an ERCP. Activity: Should not lift over 10 lb or strain for 4 weeks. Skin/Wound/Dressing Care Skin care: May shower Dressing: May remove or change Band-Aids as needed Visit Report/Discharge Packet Instructions: Endoscopic Retrograde Cholangiopancreatography, DI for Cholecystectomy Visit Report Forms: Stroke Signs & Symptoms Discharge Data Attending Provider: Roberto Carlos Narayan Admit Date/Time: 12/06/18 22:34 Quality VTE Deep Vein Thrombosis/Pulmonary Embolism Present on Admission: No
== END 2018-12-09 15:27 | disposition short-term general hospital (02) ==
LOC: ED 21:59 → AC 22:35
PROVIDERS: Admitting Provider Specialist; Emergency Provider Emergency Medicine; Visit Provider Specialist
PROC: 0FT44ZZ Resection of Gallbladder, Percutaneous Endoscopic Approach (ICD-10-PCS; CPT 47562; principal; 2018-12-07 12:30)
DX: K85.90 Acute pancreatitis without necrosis or infection, unspecified (principal); R10.13 Epigastric pain; K80.47 Calculus of bile duct with acute and chronic cholecystitis with obstruction
CPT/HCPCS: 47563; 36415; 74181; 74300; 76700; 80053; 80076; 81003; 81015; 81025; 83690; 85025; 93005; 93010; 96361; 96374; 96375; 96376; 99220; 99283; 99284; G0378; J0330; J0690; J1100; J1170; J1885; J2250; J2270; J2405; J2704; J3010